=== PATIENT | male | born 1970 | race Two or more races ===

== ENCOUNTER 2023-02-03 13:08 | Emergency (ER) | payer OTHER ==
[2023-02-03 13:16] VITALS: BP 134/80; PULSE 94; RESP 20; TEMP 98; BMI 28.8
[2023-02-03] MEDS ORDERED: KETOROLAC TROMETHAMINE 30 MG/1 ML VIAL IVPUSH ONE (14:01)
[2023-02-03] MEDS ORDERED: SODIUM CHLORIDE 0.9% 500 ML INFUS.BAG IV ONE ×2 (14:01→15:19)
[2023-02-03] MEDS ORDERED: KETOROLAC TROMETHAMINE 30 MG/1 ML VIAL ONE (14:14)
[2023-02-03 14:40] LABS: BASO % 0.7 % (0-2.0); EOS % 3.2 % (0-4.5); HEMATOCRIT 44.8 % (35.4-49); HEMOGLOBIN 15.5 GM/dL (11.7-16.9); LYMPH % 22.4 % (8-40); MCH 29.5 pg (25.7-33.7); MCHC 34.7 g/dl (32.0-35.9); MEAN CELL VOLUME 85.1 fl (80-96); MEAN PLT VOLUME 10.3 fl (7.5-11.1); MONO % 6.3 % (3.8-10.2); NEUT % 67.4 % (42.8-82.8); PLATELET COUNT 174 10^3/uL (134-434); RBC 5.26 M/mm3 (4.00-5.60); RDW 12.5 % (11.9-15.9); WHITE BLOOD COUNT 8.9 K/mm3 (4.0-10.0)
[2023-02-03 14:47] LABS: CHLORIDE 102 mmol/L (98-107); POTASSIUM 4.3 mmol/L (3.5-5.1); SODIUM 136 mmol/L (136-145)
[2023-02-03 14:49] LABS: ANION GAP 6 MMOL/L (8-16); CALCIUM 8.5 mg/dL (8.5-10.1); CO2 28 mmol/L (21-32)
[2023-02-03 14:50] LABS: BLOOD UREA NITROGEN 12.1 mg/dL (7-18)
[2023-02-03 14:53] LABS: CREATININE 1.1 mg/dL (0.55-1.3); GLUCOSE,RANDOM 454 mg/dL (74-106)
[2023-02-03 15:01] LABS: PH,URINE 5.5 (5.0-8.0); URINE APPEARANCE Error; URINE BILIRUBIN NEGATIVE (NEGATIVE); URINE COLOR YELLOW; URINE GLUCOSE (UA) 3+ (NEGATIVE); URINE KETONE NEGATIVE (NEGATIVE); URINE LEUK ESTERASE NEGATIVE (NEGATIVE); URINE NITRITE NEGATIVE (NEGATIVE); URINE PROTEIN NEGATIVE (NEGATIVE); URINE UROBILINOGEN 0.2 mg/dL (0.2-1.0)
[2023-02-03] MEDS ORDERED: metFORMIN HCL 500 MG TABLET (FP) PO ONE (15:20)
[2023-02-03] MEDS ORDERED: CEPHALEXIN MONOHYDRATE 500 MG CAPSULE (UD) PO ONE (15:21)
[2023-02-03] MEDS ORDERED: CEPHALEXIN MONOHYDRATE 500 MG CAPSULE (UD) ONE (15:29)
[2023-02-03] MEDS ORDERED: metFORMIN HCL 500 MG TABLET (FP) ONE (15:30)
== END 2023-02-03 18:13 | disposition home or self-care (01) ==
LOC: JER 13:08
PROC: 3E033GC Introduction of Other Therapeutic Substance into Peripheral Vein, Percutaneous Approach (ICD-10-PCS; principal; 2023-02-03)
DX: N47.1 Phimosis (principal)
CPT/HCPCS: 36415; 80048; 81003; 82962; 83036; 85025; 87077; 87086; 99284-25